=== PATIENT | male | born 1985 | race African-American/Black ===

== ENCOUNTER → 2016-12-26 | Outpatient (CLI) | payer OTHER ==
--- NOTE | 2016-12-26 14:10 | RAD ---
PROCEDURE MR of the left knee HISTORY Left knee pain and instability after a soccer injury and fall 6 months ago. TECHNIQUE Routine multiplanar sequences are obtained. COMPARISON None FINDINGS Tear of the medial meniscus with blunting and distortion. No evidence of lateral meniscal tear. The anterior cruciate ligament is poorly visualized particularly at the femoral attachment. Sagittal images demonstrate laxity of fibers with for horizontal orientation. Findings are compatible with a chronic anterior cruciate ligament tear. No acute pivot-shift bone injuries. Mild anterior translation of the tibia relative to the medial femoral condyle. Posterior cruciate ligament demonstrates mild signal in the posterior cruciate ligament likely degenerative. No acute rupture. Medial collateral ligament is intact. Iliotibial band unremarkable. Fibular collateral ligament, biceps femoris tendon and popliteus tendon are intact. Extensor mechanism is intact. Small full-thickness defect of the patella measures 8 millimeters height by 5 millimeters wide. There are a couple of smaller defects involving the femoral trochlear articular cartilage. Sagittal images demonstrate a nondisplaced articular cartilage flap at the lower medial femoral trochlea which measures 10 millimeters in length, sagittal series 6, image 17. Moderate chondromalacia at the medial joint compartment with marginal osteophytes. Moderate chondromalacia at the posterior aspect of the lateral femoral condyle. No bone lesion or acute fracture. No acute soft tissue injury. No significant Haro's cyst. IMPRESSION 1. Medial meniscal tear. 2. 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 3. Primary osteoarthritis. Full-thickness articular cartilage defects at the patellofemoral joint. Nondisplaced articular cartilage flap at the lower medial femoral trochlea. Electronically signed by: Tal Yoder MD (December 26, 2016 14:09:20)
== END | disposition home or self-care (01) ==
LOC: MRI 12:50
PROVIDERS: ATTEND Nurse Practitioner Gerontology
DX: M17.12 Unilateral primary osteoarthritis, left knee (principal)
CPT/HCPCS: 73721

== ENCOUNTER 2017-07-13 05:54 | Day surgery (SDC) | payer OTHER ==
[~2017-07-13] VITALS: Ht 180.3 cm; Wt 93.4 kg
[2017-07-13] MEDS ORDERED: ONDANSETRON PF 4 MG/2 ML VIAL. IV PRN (07:00)
[2017-07-13] MEDS ORDERED: fentaNYL PF VIAL 100 MCG/2 ML VIAL IV PRN ×2 (07:00)
[2017-07-13] MEDS ORDERED: PROCHLORPERAZINE 10 MG/2 ML VIAL. IV PRN (07:00)
[2017-07-13] MEDS ORDERED: LIDOCAINE 1% PF 2 ML VIAL. ID PRN (07:00)
[2017-07-13] MEDS ORDERED: HYDROmorphone 2 MG/ML VIAL IV PRN (07:00)
[2017-07-13] MEDS ORDERED: MORPHINE SULFATE 4 MG/ML DISP.SYRIN. IV PRN (07:00)
[2017-07-13] MEDS ORDERED: IV RINGERS,LACTATED 1000ML 1,000 ML IV SCH (07:00)
[2017-07-13] MEDS ORDERED: DEXAMETHASONE SOD PHOS 20 MG/5 ML VIAL. ONE (07:01)
[2017-07-13] MEDS ORDERED: ONDANSETRON PF 4 MG/2 ML VIAL. ONE (07:01)
[2017-07-13] MEDS ORDERED: LIDOCAINE 2% PF Vial for OR 5 ML VIAL. ONE (07:01)
[2017-07-13] MEDS ORDERED: FAMOTIDINE 20 MG/2 ML VIAL ONE (07:01)
[2017-07-13] MEDS ORDERED: fentaNYL PF VIAL 100 MCG/2 ML VIAL ONE ×3 (07:01→09:14)
[2017-07-13] MEDS ORDERED: ROCURONIUM 50 MG/5 ML VIAL. ONE (07:01)
[2017-07-13] MEDS ORDERED: PROPOFOL 20 ML IV ONE (07:01)
[2017-07-13] MEDS ORDERED: MIDAZOLAM HCL/PF 2 MG/2 ML VIAL. ONE (07:02)
--- NOTE | 2017-07-13 07:13 | DISCH ---
DISCHARGE INSTRUCTIONS Condition on Discharge Condition on Discharge: Stable Activity After Discharge Activity Instructions for Disc: Other, see below Bathing Instructions: Shower-keep dressing dry Weight Bearing Status after Di: Non weight bearing Diet after Discharge Diet after Discharge: Regular Wound Incision Care Wound/Incision Care: Ice to area for comfort, Keep wound/cast CDI, Keep wound elevated, Change dressing Contacting the DRMarcelino after DC Call your doctor for: Concerns you may have Follow-Up Follow up with: Loren in 2wks AGUEDA GRESHAM II, MD Jul 13, 2017 07:13
[2017-07-13] MEDS ORDERED: EPINEPHrine VIAL 30 MG/30 ML VIAL ONE (07:26)
[2017-07-13] MEDS ORDERED: BUPIVACAINE MPF 0.5% 30 ML VIAL. ONE (07:26)
[2017-07-13] MEDS ORDERED: LIDOCAINE 1% PF 30 ML VIAL. ONE (07:26)
[2017-07-13] MEDS ORDERED: SEVOFLURANE > 120 MINUTES. IH ONE (09:14)
[2017-07-13] MEDS ORDERED: GLYCOPYRROLATE 1 MG/5 ML VIAL. ONE (09:17)
[2017-07-13] MEDS ORDERED: NEOSTIGMINE METHYLSULFATE 5 MG/5 ML SYRINGE. ONE (10:00)
--- NOTE | 2017-07-13 11:10 | PDOC4 ---
Operative Note Operative Note Date of surgery: 07/13/2017 Surgeon: Dago Gresham Administrative Processor: Bonnie Hawley Preoperative diagnosis: #1 left knee ACL tear #2 medial meniscal tear Postoperative diagnosis #1 complete left knee ACL tear #2 complex medial meniscus tear #3 complete radial tear near root of the lateral meniscus Procedure performed: #1 arthroscopic assisted bone patellar tendon bone autograft ACL reconstruction #2 lateral meniscal root repair #3 partial medial meniscectomy Findings: Patient had a large amount of cartilage debris floating around his knee. He had near full-thickness lesions that trochlea and undersurface of patella Complex degenerative appearing medial meniscus tear Grade 2 changes medial compartment Complete ACL tear, PCL intact Complete radial tear neurectomy lateral meniscus Grade 2 changes at femur around 30-60 at lateral compartment Anesthesia: Gen. Blood loss 50 mL Tourniquet time: 120 minutes Components inserted Arroyo and [employer] bio sure peak screws FasT-Fix 360 Endobutton for washer Reason for procedure: Patient is a 32-year-old gentleman with complaints of instability his knee that has been going on for some time. Clinical radiographic evidence were consistent with the above preoperative diagnoses and after reviewing the MRI, we discussed the risks, benefits, alternatives to surgery and he elected to proceed. Description of procedure patient was greeted in the preoperative area by myself for the correct extremity was marked and verified. He was taken to the operative suite and his antibiotics were started and row. Once in the OR he was transferred gently supine to the operating room table and had successful induction of a general anesthetic. We then placed a nonsterile tourniquet and taped in place to his left thigh and a padded bolster at his hip and padded bar across for the bed to help maintain his knee in 90. I conducted my examination under anesthesia. He had a knee that was stable to varus and valgus at 0 and 30 of flexion. Negative dial. Positive Cindy without endpoint. Positive pivot shift. We then proceeded to prep and drape left lower extremity in her usual sterile fashion and conducted our standard preoperative timeout. I then palpated and marked his surface anatomy and exsanguinated his extremity and the tourniquet was insufflated. I then made a straight anterior midline incision favoring the medial border of his patellar tendon and dissected subcutaneous tissue with electrocautery. I then used tenotomies to identify and incised peritenon in line with the central portion of the patellar tendon. I then identified the medial lateral borders of the patellar tendon and used a ruler and inserted my scalpel and then incised patellar tendons medial third for with about 10 mm. I then measured for a 10 x 20 and 10 x 25 plug of bone and side and remove the bony ends from the harvest sites. I then debrided the fat pad from the posterior aspect of the patellar tendon. I then took my autograft to the back table and prepped it with 2 drill holes at the each bone plug after crimping and removing some of the bone with Carmelo. These bony pieces were saved. I then placed #2 ultra braid through both drill holes at both of the bone plugs and then wrapped the graft and a moistened lap. I then directed my attention to incising skin for my anterolateral portal, I then introduce the blunt arthroscopic trocar into the suprapatellar pouch followed by the camera. I then performed my diagnostic arthroscopy with above noted findings and upon entering the medial compartment used a spinal to localize the anteromedial portal and incised skin. I then inserted my probe and continued on with my inspection of his medial meniscus. I then performed as partial medial meniscectomy back to [facility]. I then continued on and inspected his notch and noted this ACL tear and debrided his ACL at his femoral and tibial footprints. I then placed the probe into the notch in place his knee in figure- of-four position specters lateral compartment the above-noted findings. At this point I elected to proceed with my lateral meniscus repair. I used the ACL tipped guide to advance a Beath pin through the posterior aspect of the lateral tibial plateau were I felt the meniscus should be repaired. I then used a curved spinal needle to shuttle a 2-0 PDS 2 through the meniscus. I then shuttled a number a 2-0 ultra braid 2 through the meniscus and using a Hewson suture passer and retrieved these out through my Beath pin tunnel at his anterior tibia. I then debrided the tear site and tied the suture ends to themselves using my Endobutton is a washer. I thought this afforded a good repair. I then supplemented this with a horizontal mattress FasT-Fix 360. This was tensioned and cut. I was overall satisfied with this repair. I then directed my attention to localizing my tibial tunnel footprints and referenced the [place] anatomy in the posterior horn lateral meniscus and advanced Beath pin , and I took care that might 2 tunnels were well away from one another. I then reamed to size 10 and inserted the plug. I then directed my attention to the femoral side and using the [id number] guide, 7 mm, and hyperflexion advanced Beath pin into the femoral insertion. I then inspected this and felt that it was a good site. I then reamed to a little over 20 mm. I then used the Beath pin to shuttle a #2 UltraFix suture through which acted as my passing stitch. I retrieved this into the tibial tunnel with a loop grasper. I then shuttled my ACL graft into position controlling orientation with a hemostat as well. After ensured that it had docked well, Place a nitinol wire and used first the 6mm tap, followed by the 9. I then inserted a 9 mm peek screw. I then removed the arthroscopic interpretation repeatedly cycled the knee. I then tensioned his ACL graft about 20 of flexion and repeated the tapping and nitinol wire for my tibial bone plug. I then placed a screw. I then reached used to camera and inspected my graft was happy with the position and orientation. I then took care to ensure and removed all loose pieces from the knee joint. I then removed all excess arthroscopic fluid and the arthroscopic instrumentation. I then irrigated out the operative field well. I then placed the bone graft at the harvest sites at his patella and proximal tibia. I then closed tissue over this as well as reapproximated the patellar tendon with simple interrupted 0 Vicryl. Peritenon was then closed with simple interrupted 0 Vicryl. Inverted interrupted 20 used for subcutaneous tissue and running 4-0 Monocryl was used for skin. Prior to accomplishing wound closure all counts were correct 2. No complications. Patient tolerated surgery well. The anterolateral portal was closed with nylon. A sterile dressing and sterile cast padding followed by an Delroy wrap and a hinged knee brace were applied to the patient's left knee. At the conclusion of the surgery, he is awake from anesthesia and transferred gently supine to the recovery room cart and taken to PACU in a stable and extubated condition. Postoperative plan is nonweightbearing 6 weeks. We'll get him started on physical therapy her after surgery. He'll follow up with me in 2 weeks, sooner should a problem arise DAGO GRESHAM II, MD Jul 13, 2017 11:10
[2017-07-13] MEDS ORDERED: OXYC-323 PO (12:12)
[2017-07-13 12:14] VITALS: BP 146/86
[2017-07-13] MEDS ORDERED: oxyCODONE/APAP 5/325 1 TAB TABLET PO PRN (12:15)
[2017-07-13] MEDS ORDERED: oxyCODONE/APAP 5/325 1 TAB TABLET ONE (12:16)
== END 2017-07-13 13:04 | disposition home or self-care (01) ==
LOC: SURG 05:54
PROVIDERS: ATTEND Orthopaedic Surgery Sports Medicine
DX: S83.512A Sprain of anterior cruciate ligament of left knee, initial encounter (principal); S83.232A Complex tear of medial meniscus, current injury, left knee, initial encounter; S83.282A Other tear of lateral meniscus, current injury, left knee, initial encounter; X58.XXXA Exposure to other specified factors, initial encounter; Y93.89 Activity, other specified; Y92.89 Other specified places as the place of occurrence of the external cause; Y99.8 Other external cause status; E66.9 Obesity, unspecified; F17.200 Nicotine dependence, unspecified, uncomplicated; Z68.28 Body mass index [BMI] 28.0-28.9, adult; Z72.89 Other problems related to lifestyle; Z87.39 Personal history of other diseases of the musculoskeletal system and connective tissue
CPT/HCPCS: 29881; 29882; 29888; C1713; C1769; C1782; J0171; J0690; J1100; J2250; J2270; J2405; J2704; J2710; J3010; J3490; J7120; S0028; J2001